=== PATIENT | female | born 1995 | race African-American/Black ===

== ENCOUNTER 2024-06-14 13:41 | Emergency (ER) | payer OTHER ==
[~2024-06-14] VITALS: Ht 165.1 cm; Wt 70.0 kg
[2024-06-14 13:46] VITALS: O2SAT 99
[2024-06-14 14:51] VITALS: TEMP 97.8
[2024-06-14] MEDS: ACETAMINOPHEN 500MG TABLET PO ONE (14:51)
[2024-06-14 17:02] VITALS: BP 106/68; PULSE 78; RESP 16; O2SAT 99
== END 2024-06-14 17:10 | disposition home or self-care (01) ==
LOC: ER 13:41
DX: S40.212A Abrasion of left shoulder, initial encounter (principal); R51.9 Headache, unspecified; R68.84 Jaw pain; J45.909 Unspecified asthma, uncomplicated; Y04.0XXA Assault by unarmed brawl or fight, initial encounter; Y93.89 Activity, other specified; Y92.89 Other specified places as the place of occurrence of the external cause; Y99.8 Other external cause status
CPT/HCPCS: 70486; 99284